=== PATIENT | male | born 1985 | race Caucasian/White ===

== ENCOUNTER 2022-02-17 08:30 | Emergency (ER) | payer BC ==
[2022-02-17] MEDS ORDERED: HYDROmorphone 1 MG/ML Syringe IVPUSH ONE (08:50)
[2022-02-17] MEDS ORDERED: Ondansetron 4 MG/2 ML SDV IVPUSH ONE (08:50)
== END 2022-02-17 12:57 | disposition home or self-care (01) ==
LOC: MW.ED 08:30
DX: K42.9 Umbilical hernia without obstruction or gangrene (principal); I10 Essential (primary) hypertension; Z72.0 Tobacco use; Z79.899 Other long term (current) drug therapy
CPT/HCPCS: 74176; 76705; 96374; 96375; 99284; J1170; J2405

== ENCOUNTER 2023-09-23 21:44 | Emergency (ER) | payer BC, MEDICARE | END 2023-09-23 22:09 | disposition home or self-care (01) | LOC: MW.ED 21:44 | DX: D17.9 Benign lipomatous neoplasm, unspecified (principal); R23.3 Spontaneous ecchymoses; M62.838 Other muscle spasm; I10 Essential (primary) hypertension; Z79.899 Other long term (current) drug therapy; Z75.8 Other problems related to medical facilities and other health care | CPT/HCPCS: 99283; 99284 ==

== ENCOUNTER 2023-11-30 06:37 | Day surgery (SDC) | payer MEDICARE, MEDICAID ==
[~2023-11-30 06:37] MED LIST: Lactated Ringers 1,000 ML IV SCH
[2023-11-30] MEDS ORDERED: propofoL 100 ML ONE (07:07)
[2023-11-30] MEDS ORDERED: Albuterol 0.083% 2.5 MG/3 ML Neb Soln NEB PRN (07:17)
[2023-11-30] MEDS ORDERED: Ondansetron 4 MG/2 ML SDV IVPUSH PRN (07:17)
[2023-11-30] MEDS ORDERED: fentaNYL 50 MCG/ML SDV IVPUSH PRN (07:17)
[2023-11-30] MEDS ORDERED: Metoclopramide 10 MG/2 ML SDV IVPUSH PRN (07:17)
[2023-11-30] MEDS ORDERED: Naloxone 0.4 MG/ML SDV IVPUSH PRN (07:17)
[2023-11-30] MEDS ORDERED: Morphine 2 MG/ML SYRINGE IVPUSH PRN (07:17)
[2023-11-30] MEDS ORDERED: droPERidol 5 MG/2 ML SDV IVPUSH PRN (07:17)
[2023-11-30] MEDS ORDERED: HYDROmorphone 1 MG/ML Syringe IVPUSH PRN (07:17)
[2023-11-30] MEDS ORDERED: Ketamine HCL/NACL, ISO-OSM 50 MG/5 ML Syringe ONE (07:17)
[2023-11-30] MEDS ORDERED: Ondansetron 4 MG/2 ML SDV ONE ×2 (07:18)
[2023-11-30] MEDS ORDERED: Lidocaine 2% 5 ML SDV ONE (07:18)
[2023-11-30] MEDS ORDERED: Bupivacaine 0.5% 30 ML SDV ONE (07:23)
[2023-11-30] MEDS ORDERED: Lidocaine 1% 20 ML MDV ONE (07:23)
[2023-11-30] MEDS ORDERED: Lactated Ringers 1,000 ML IV SCH (09:00)
== END 2023-11-30 09:20 | disposition home or self-care (01) ==
LOC: MW.SDS 06:37
PROVIDERS: ATTEND Surgery
DX: Z49.01 Encounter for fitting and adjustment of extracorporeal dialysis catheter (principal); I12.9 Hypertensive chronic kidney disease with stage 1 through stage 4 chronic kidney disease, or unspecified chronic kidney disease; N18.9 Chronic kidney disease, unspecified; Q61.3 Polycystic kidney, unspecified
CPT/HCPCS: 36589; J0665; J2405; J2704; 00400; J3490

== ENCOUNTER 2023-12-26 11:20 | Emergency (ER) | payer MEDICARE, MEDICAID ==
[2023-12-26 12:02] LABS: BASOPHILS ABSOLUTE AUTO 0.04 K/uL (0.00-0.20); BASOPHILS PERCENT AUTO 0.5 % (0.0-1.0); EOSINOPHILS ABSOLUTE AUTO 0.07 K/uL (0.00-0.45); EOSINOPHILS PERCENT AUTO 0.8 % (0.0-6.0); HEMATOCRIT 32.8 % (42.0-52.0); HEMOGLOBIN 10.8 g/dL (14.0-18.0); IMMATURE GRAN ABSOLUTE AUTO 0.03 K/uL (0.00-0.05); IMMATURE GRAN PERCENT AUTO 0.4 % (0.0-0.4); LYMPHOCYTES ABSOLUTE AUTO 0.82 K/uL (1.00-4.80); LYMPHOCYTES PERCENT AUTO 9.7 % (24.0-44.0); MEAN CORPUSCULAR HEMOGLOBIN 28.8 pg (28.0-32.0); MEAN CORPUSCULAR HGB CONC 32.9 g/dL (32.0-36.0); MEAN CORPUSCULAR VOLUME 87.5 fL (83.0-99.0); MONOCYTES ABSOLUTE AUTO 0.89 K/uL (0.00-0.80); MONOCYTES PERCENT AUTO 10.5 % (0.0-8.0); NEUTROPHILS ABSOLUTE AUTO 6.64 K/uL (1.80-7.70); NEUTROPHILS PERCENT AUTO 78.1 % (41.0-71.0); RED BLOOD CELL COUNT 3.75 M/uL (4.52-5.90); WHITE BLOOD CELL COUNT,WBC 8.49 K/uL (3.9-11.3)
[2023-12-26 12:11] LABS: PLATELET COUNT,PLT 117 K/uL (150-400)
[2023-12-26 12:16] LABS: APPEARANCE,URINE CLOUDY; COLOR,URINE RED; GLUCOSE,URINE 100 mg/dL (NEGATIVE); KETONES,URINE TRACE mg/dL (NEGATIVE); LEUKOCYTE ESTERASE,URINE NEGATIVE (NEGATIVE); NITRITE,URINE POSITIVE (NEGATIVE); OCCULT BLOOD,URINE LARGE (NEGATIVE); PROTEIN,URINE >=300 mg/dL (NEGATIVE); UROBILINOGEN,URINE 0.2 EU/dL (<2.0)
[2023-12-26 12:19] LABS: A/G RATIO 0.9 (0.9-1.6); ALBUMIN 3.2 g/dL (3.4-5.0); BILIRUBIN TOTAL 0.6 mg/dL (0.2-1.0); CALCIUM 9.1 mg/dL (8.5-10.1); CARBON DIOXIDE,CO2 33.9 mmol/L (21.0-32.0); CREATININE 10.3 mg/dL (0.8-1.3); EST CRCL DRUG DOSING (CG) 10.4 mL/min; POTASSIUM,K 4.6 mmol/L (3.5-5.1); PROTEIN TOTAL,TP 6.9 g/dL (6.4-8.2)
[2023-12-26 12:23] LABS: BILIRUBIN,URINE SMALL (NEGATIVE); RBC,URINE TOO NUMEROUS TO CT (0-2/HPF)
[2023-12-26 12:24] LABS: BACTERIA,URINE FEW (NEGATIVE); EPITHELIAL CELLS,URINE RARE (NONE-FEW); WBC,URINE 0-3 (0-5/HPF)
[2023-12-26] MEDS: traMADol 50 MG Tab PO ONE (19:26)
== END 2023-12-26 19:52 | disposition home or self-care (01) ==
LOC: MW.ED 11:20
DX: N28.1 Cyst of kidney, acquired (principal); N13.9 Obstructive and reflux uropathy, unspecified; I12.0 Hypertensive chronic kidney disease with stage 5 chronic kidney disease or end stage renal disease; N18.6 End stage renal disease; F17.210 Nicotine dependence, cigarettes, uncomplicated; Z99.2 Dependence on renal dialysis; Z79.899 Other long term (current) drug therapy; Z75.8 Other problems related to medical facilities and other health care
CPT/HCPCS: 36415; 51702; 74176; 80053; 81001; 85025; 99284; A9270

== ENCOUNTER 2024-01-06 17:07 | Emergency (ER) | payer MEDICAID, MEDICARE ==
[2024-01-06 17:29] LABS: BASOPHILS ABSOLUTE AUTO 0.05 K/uL (0.00-0.20); BASOPHILS PERCENT AUTO 0.2 % (0.0-1.0); EOSINOPHILS ABSOLUTE AUTO 0.02 K/uL (0.00-0.45); EOSINOPHILS PERCENT AUTO 0.1 % (0.0-6.0); HEMATOCRIT 13.6 % (42.0-52.0); IMMATURE GRAN ABSOLUTE AUTO 0.25 K/uL (0.00-0.05); IMMATURE GRAN PERCENT AUTO 0.9 % (0.0-0.4); LYMPHOCYTES ABSOLUTE AUTO 0.83 K/uL (1.00-4.80); LYMPHOCYTES PERCENT AUTO 2.9 % (24.0-44.0); MEAN CORPUSCULAR HEMOGLOBIN 29.2 pg (28.0-32.0); MEAN CORPUSCULAR HGB CONC 33.1 g/dL (32.0-36.0); MEAN CORPUSCULAR VOLUME 88.3 fL (83.0-99.0); MEAN PLATELET VOLUME 9.9 fL (9.4-12.4); MONOCYTES ABSOLUTE AUTO 1.24 K/uL (0.00-0.80); MONOCYTES PERCENT AUTO 4.3 % (0.0-8.0); NEUTROPHILS ABSOLUTE AUTO 26.69 K/uL (1.80-7.70); NEUTROPHILS PERCENT AUTO 91.6 % (41.0-71.0); PLATELET COUNT,PLT 287 K/uL (150-400); RED BLOOD CELL COUNT 1.54 M/uL (4.52-5.90); WHITE BLOOD CELL COUNT,WBC 29.08 K/uL (3.9-11.3)
[2024-01-06 17:47] LABS: HEMOGLOBIN 4.5 g/dL (14.0-18.0)
[2024-01-06 17:48] LABS: A/G RATIO 0.6 (0.9-1.6); ALANINE AMINOTRANSFERASE,ALT <6 IU/L (14-63); ALBUMIN 2.6 g/dL (3.4-5.0); ALKALINE PHOSPHATASE 61 U/L (46-116); ASPARTATE AMNIOTRANSFERASE,AST 13 IU/L (15-37); BILIRUBIN TOTAL 0.5 mg/dL (0.2-1.0); BLOOD UREA NITROGEN,BUN 66 mg/dL (7.0-18.0); CALCIUM 9.4 mg/dL (8.5-10.1); CHLORIDE,CL 91 mmol/L (98-107); CREATININE 10.9 mg/dL (0.8-1.3); EST CRCL DRUG DOSING (CG) 9.43 mL/min; GLUCOSE RANDOM 164 mg/dL (74-106); LIPASE 98 U/L (16-77); POTASSIUM,K 6.5 mmol/L (3.5-5.1); PROTEIN TOTAL,TP 6.9 g/dL (6.4-8.2); SODIUM,NA 133 mmol/L (136-148)
[2024-01-06 17:51] LABS: ESTIMATED GFR 6 mL/min (>60)
[2024-01-06] MEDS ORDERED: Glucagon,Human Recombinant 1 MG Vial IM PRN ×2 (18:04→21:31)
[2024-01-06] MEDS: Albuterol 0.083% 2.5 MG/3 ML Neb Soln NEB ONE ×2 (18:38→21:45)
[2024-01-06] MEDS: VANCOmycin 1.5 GM/300 ML 1.5 GM in Premix Bag 1 BAG IV ONE (18:38)
[2024-01-06] MEDS: Sodium Polystyrene Sulfonate 15 GM/60 ML Susp 60 ML Bot PO ONE (18:38)
[2024-01-06] MEDS: Insulin Regular, Human 100 Units/ML 10 ML Vial IVPUSH ONE ×2 (18:39→21:46)
[2024-01-06] MEDS: Calcium Gluconate 10% 1 GM/10 ML SDV IVPUSH ONE ×2 (18:46→21:46)
[2024-01-06] MEDS: Cefepime 2 GM in Sodium Chloride 0.9% 50 ML IV ONE (18:46)
[2024-01-06] MEDS: 50% Dextrose in Water 50 ML Syringe IVPUSH PRN (18:46)
[2024-01-06] MEDS: Sodium Chloride 0.9% 500 ML IV STA (18:49)
[2024-01-06 18:58] LABS: LACTIC ACID 4.1 mmol/L (0.4-2.0)
[2024-01-06] MEDS: Acetaminophen 500 MG Tab PO ONE (20:57)
[2024-01-06] MEDS ORDERED: 50% Dextrose in Water 50 ML Syringe IVPUSH PRN (21:31)
[2024-01-07] MEDS: Sodium Chloride 0.9% 500 ML IV STA (00:01)
== END 2024-01-07 00:20 ==
LOC: MW.ED 17:07
DX: A41.9 Sepsis, unspecified organism (principal); E87.5 Hyperkalemia; N28.89 Other specified disorders of kidney and ureter; I12.0 Hypertensive chronic kidney disease with stage 5 chronic kidney disease or end stage renal disease; N18.6 End stage renal disease; F17.210 Nicotine dependence, cigarettes, uncomplicated; Z99.2 Dependence on renal dialysis; Z79.899 Other long term (current) drug therapy
CPT/HCPCS: 36415; 36430; 71045; 74176; 80053; 82947; 83605; 83690; 84132; 85025; 86850; 86900; 86901; 86920; 87040; 96365; 96366; 96368; 96375; 96376; 99285; A9270; J0612; J0692; J1815; J3372; J3490; J7030; P9016; 93010; 99291; J7620-GY

== ENCOUNTER 2024-02-10 13:42 | Emergency (ER) | payer MEDICAID, MEDICARE ==
[2024-02-10] MEDS ORDERED: Sodium Chloride 0.9% 10 ML Syringe FLUSH PRN (14:20)
[2024-02-10] MEDS ORDERED: Sodium Chloride 0.9% 2.5 ML Syringe FLUSH PRN (14:20)
[2024-02-10 14:51] LABS: BASOPHILS ABSOLUTE AUTO 0.02 K/uL (0.00-0.20); BASOPHILS PERCENT AUTO 0.3 % (0.0-1.0); EOSINOPHILS ABSOLUTE AUTO 0.05 K/uL (0.00-0.45); EOSINOPHILS PERCENT AUTO 0.7 % (0.0-6.0); HEMATOCRIT 23.8 % (42.0-52.0); HEMOGLOBIN 7.4 g/dL (14.0-18.0); IMMATURE GRAN ABSOLUTE AUTO 0.02 K/uL (0.00-0.05); IMMATURE GRAN PERCENT AUTO 0.3 % (0.0-0.4); LYMPHOCYTES ABSOLUTE AUTO 0.74 K/uL (1.00-4.80); LYMPHOCYTES PERCENT AUTO 10.6 % (24.0-44.0); MEAN CORPUSCULAR HEMOGLOBIN 29.1 pg (28.0-32.0); MEAN CORPUSCULAR HGB CONC 31.1 g/dL (32.0-36.0); MEAN CORPUSCULAR VOLUME 93.7 fL (83.0-99.0); MEAN PLATELET VOLUME 9.5 fL (9.4-12.4); MONOCYTES ABSOLUTE AUTO 0.64 K/uL (0.00-0.80); MONOCYTES PERCENT AUTO 9.1 % (0.0-8.0); NEUTROPHILS ABSOLUTE AUTO 5.53 K/uL (1.80-7.70); PLATELET COUNT,PLT 148 K/uL (150-400); RED BLOOD CELL COUNT 2.54 M/uL (4.52-5.90)
[2024-02-10 15:03] LABS: ALBUMIN 3.3 g/dL (3.4-5.0); BILIRUBIN TOTAL 0.4 mg/dL (0.2-1.0); CALCIUM 9.2 mg/dL (8.5-10.1); CARBON DIOXIDE,CO2 31.1 mmol/L (21.0-32.0); CREATININE 9.4 mg/dL (0.8-1.3); EST CRCL DRUG DOSING (CG) 11.06 mL/min; POTASSIUM,K 5.8 mmol/L (3.5-5.1); PROTEIN TOTAL,TP 7.2 g/dL (6.4-8.2)
[2024-02-10 15:05] LABS: A/G RATIO 0.9 (0.9-1.6)
[2024-02-10] MEDS: Iopamidol 755 MG/ML 500 ML Multipack Bottle IVPUSH STA (17:08)
[2024-02-10 17:25] LABS: BASOPHILS ABSOLUTE AUTO 0.03 K/uL (0.00-0.20); BASOPHILS PERCENT AUTO 0.4 % (0.0-1.0); EOSINOPHILS ABSOLUTE AUTO 0.07 K/uL (0.00-0.45); HEMATOCRIT 23.6 % (42.0-52.0); HEMOGLOBIN 7.2 g/dL (14.0-18.0); IMMATURE GRAN ABSOLUTE AUTO 0.01 K/uL (0.00-0.05); IMMATURE GRAN PERCENT AUTO 0.1 % (0.0-0.4); LYMPHOCYTES ABSOLUTE AUTO 0.86 K/uL (1.00-4.80); LYMPHOCYTES PERCENT AUTO 12.3 % (24.0-44.0); MEAN CORPUSCULAR HEMOGLOBIN 28.7 pg (28.0-32.0); MEAN CORPUSCULAR HGB CONC 30.5 g/dL (32.0-36.0); MEAN PLATELET VOLUME 8.4 fL (9.4-12.4); NEUTROPHILS ABSOLUTE AUTO 5.34 K/uL (1.80-7.70); NEUTROPHILS PERCENT AUTO 76.2 % (41.0-71.0); PLATELET COUNT,PLT 129 K/uL (150-400); RED BLOOD CELL COUNT 2.51 M/uL (4.52-5.90); WHITE BLOOD CELL COUNT,WBC 7.01 K/uL (3.9-11.3)
[2024-02-10 17:43] LABS: CALCIUM 9.1 mg/dL (8.5-10.1); CARBON DIOXIDE,CO2 30.9 mmol/L (21.0-32.0); CREATININE 9.6 mg/dL (0.8-1.3); EST CRCL DRUG DOSING (CG) 10.83 mL/min; POTASSIUM,K 5.8 mmol/L (3.5-5.1)
== END 2024-02-10 20:15 | disposition left against medical advice (07) ==
LOC: MW.ED 13:42
DX: I12.0 Hypertensive chronic kidney disease with stage 5 chronic kidney disease or end stage renal disease (principal); N18.6 End stage renal disease; Z99.2 Dependence on renal dialysis; Z79.899 Other long term (current) drug therapy
CPT/HCPCS: 36415; 74178; 80048; 80053; 83690; 85025; 85610; 86850; 86900; 86901; 93005; 99284; Q9967; 93010